=== PATIENT | female | born 1935 | race Caucasian/White ===

== ENCOUNTER → 2017-05-03 14:09 | Outpatient (CLI) | payer MEDICARE, SELFPAY ==
[2017-05-03 14:28] LABS: Bacteria 0 SEEN /hpf (None Seen); Mucous, Urine 0 SEEN /hpf (<or=2+); White Blood Cells 0 SEEN /hpf (0-5)
[2017-05-03 15:27] LABS: Color, Urine Yellow (Yellow); Glucose, Dipstick Normal (Normal); Ketone-Dipstick Negative (Negative); Leukocyte Esterase-Dipstick Negative /ul (Negative); Nitrite-Dipstick Negative (Negative); Occult Blood-Urine 10 /ul (Negative); Protein-Dipstick Negative (Negative); Urine Bilirubin Dipstick Negative (Negative); Urine Clarity Sl. Cloudy (Clear); Urine Urobilinogen Normal (Normal)
[2017-05-03 15:58] LABS: T4 Free Direct 1.09 ng/dL (0.76-1.46)
[2017-05-03 16:30] LABS: Red Blood Cells-Urine 0-5 SEEN /hpf (0-5); Squamous Epithelial Cells - UA 0-5 SEEN /hpf (5-10)
[2017-05-03 16:33] LABS: Erythrocyte Sedimentation Rate 10 mm/hr (0-30)
[2017-05-04 10:45] LABS: T3 Total - Triiodothyronine 0.92 ng/mL (0.6-1.81)
[2017-05-07 16:08] LABS: Albumin 3.8 g/dL (2.9-4.4); Alpha-1-Globulins 0.2 g/dL (0.0-0.4); Alpha-2-Globulins 0.8 g/dL (0.4-1.0); Gamma Globulin 1.2 g/dL (0.4-1.8); Immunoglobulin A 214 mg/dL (64-422); Immunoglobulin G 874 mg/dL (700-1600); Immunoglobulin M 262 mg/dL (26-217)
[2017-05-08 16:15] LABS: Thyroid Peroxidase AB 12 IU/mL (0-34)
== END ==
PROVIDERS: Family Provider Family Medicine; PCP Family Medicine; Visit Provider Dermatology Pediatric Dermatology
DX: L29.9 Pruritus, unspecified (principal); L50.3 Dermatographic urticaria; I83.12 Varicose veins of left lower extremity with inflammation
CPT/HCPCS: 36415; 81001; 82784; 84165; 84439; 84443; 84480; 85652; 86334; 86376

== ENCOUNTER → 2017-05-08 12:30 | Outpatient (CLI) | payer MEDICARE, SELFPAY | PROVIDERS: Family Provider Family Medicine; PCP Family Medicine; Visit Provider Dermatology Pediatric Dermatology | DX: L50.3 Dermatographic urticaria (principal); I83.12 Varicose veins of left lower extremity with inflammation; L29.9 Pruritus, unspecified | CPT/HCPCS: 82274 ==

== ENCOUNTER → 2017-05-14 11:55 | Outpatient (CLI) | payer MEDICARE, SELFPAY ==
--- NOTE | 2017-05-14 11:59 | BI_ITS ---
MAMMOGRAPHY - BILATERAL SCREENING REASON FOR EXAM: Female, 81 years old. Routine annual screening examination. PERTINENT HISTORY: Remote left stereotactic breast biopsy. TECHNIQUE: Digital bilateral breast hilary (3D mammographic acquisition) in the CC and MLO projections. 2-D mediolateral oblique (MLO) and craniocaudad (CC) views of both breasts were obtained. CAD: Full Field Digital Mammography with Computer Added Detection was performed. COMPARISON: Comparison is made with prior outside examination of December 06, 2015. FINDINGS: Breast Composition: There are scattered areas of fibroglandular density. There are no dominant masses or suspicious calcifications. Stable bilateral secretory calcifications. A tissue clip marker is seen in the upper deep lateral portion of the left breast. No other significant abnormalities are identified. There has been no significant change since the prior study. BI/SCREENING MAMM (CAD), BILAT IMPRESSION: Stable bilateral screening mammogram. Yearly follow-up mammogram recommended. (A) ASSESSMENT CATEGORY: BIRADS Category 2: Benign. A letter regarding these results will be sent to the patient by the facility within 30 days. Approximately 10% of breast cancers are not detected by mammography. A normal mammogram should not delay biopsy of a clinically suspicious abnormality. [id number] Electronically Signed: Brian Del Cid MD at 13:50 EDT Tel [phone], Service support ,
== END ==
PROVIDERS: Family Provider Family Medicine; PCP Family Medicine; Visit Provider Dermatology Pediatric Dermatology
DX: Z12.31 Encounter for screening mammogram for malignant neoplasm of breast (principal)
CPT/HCPCS: 77063; 77067

== ENCOUNTER → 2017-07-05 16:43 | Outpatient (CLI) | payer MEDICARE, SELFPAY | PROVIDERS: Family Provider Family Medicine; PCP Family Medicine; Visit Provider Nurse Practitioner Adult Health | DX: R30.0 Dysuria (principal) | CPT/HCPCS: 87086; 87088; 87186 ==

== ENCOUNTER → 2017-08-07 13:19 | Outpatient (CLI) | payer MEDICARE, SELFPAY | PROVIDERS: Family Provider Family Medicine; PCP Family Medicine; Visit Provider Nurse Practitioner Adult Health | DX: R82.99 Other abnormal findings in urine (principal) | CPT/HCPCS: 87086 ==

== ENCOUNTER → 2018-07-04 10:57 | Outpatient (CLI) | payer MEDICARE, SELFPAY ==
[2018-07-04 11:58] LABS: International Normalized Ratio 1.2; Prothrombin Time (Protime)PT. 15.4 SECONDS (11.7-14.9)
== END ==
PROVIDERS: Family Provider Family Medicine; PCP Family Medicine; Visit Provider Physician Assistant
DX: Z79.01 Long term (current) use of anticoagulants (principal)
CPT/HCPCS: 36415; 85610

== ENCOUNTER → 2020-03-05 09:30 | Outpatient (CLI) | payer MEDICARE, SELFPAY ==
--- NOTE | 2020-03-05 09:38 | RAD_ITS ---
CLINICAL HISTORY: Female, 84 years old. 2 month history of abdominal pain worse in the right lower quadrant. Chronic diarrhea. PROCEDURE: Small bowel follow-through examination. FLUOROSCOPY TIME (if supplied): (1 minute.) minutes/seconds TECHNIQUE: (All elements of maximal sterile barrier technique followed, including US elements as applicable) The patient ingested barium. A small bowel follow-through examination was then obtained. A public relations consultant film was obtained. A moderate amount of fecal material is seen in colon. The patient is status post cholecystectomy. There is evidence of a dextroscoliosis with evidence of prior vertebroplasty of the L1 and L2 vertebrae. The patient ingested barium. The small bowel transit is normal. No evidence of intrinsic or extrinsic small bowel disease. The terminal ileum is unremarkable. RAD/Small Bowel Series Only IMPRESSION: Unremarkable small bowel follow-through examination. Electronically Signed: Brian Del Cid MD at 7:46 EST , Service support ,
== END ==
PROVIDERS: PCP Family Medicine; Referring Provider Nurse Practitioner Adult Health; Visit Provider Nurse Practitioner Adult Health
DX: K52.9 Noninfective gastroenteritis and colitis, unspecified (principal)
CPT/HCPCS: 74250

== ENCOUNTER 2021-08-31 17:55 | Inpatient (IN) | payer MEDICARE, SELFPAY ==
[2021-08-31 18:22] VITALS: BMI 21.4
--- NOTE | 2021-08-31 20:03 | HP.PCM_ITS ---
HPI - General General Date of Admission: 08/31/21 Date of Service: 08/31/21 Chief Complaint: Here for rehab. HPI Narrative 08/04/2021 JIGAR IVY, is a 85 Female hurt right hip, fell. X-rays negative at time. Right hip pain persisted. She later presented to [facility], further imaging revealed right femoral neck fracture. 08/29/2021 Admit to [facility] with right femoral neck fracture. 08/29/2021 Orthopedics performed right hip hemiarthroplasty. 08/31/2021 Admit to TCU with debility, here for rehabilitation, strengthening, prior to discharge home. She has at home, but he is not in good health to be able to take care of her. [facility] Medical History (Updated 08/31/21 @ 20:[address] Solitario Light MD) Anxiety Asthma Atrial fibrillation Chest pain Depression Hip fracture, right Hypertension Irritable bowel Non-smoker Osteoporosis Pulmonary hypertension Rotator cuff arthropathy of right shoulder Wears hearing aid in both ears Home Medications albuterol sulfate 90 mcg/actuation aerosol inhaler (ProAir HFA) 2 puff inhalation Q6H PRN PRN sob 08/31/21 [History Last Taken Unknown] alosetron 0.5 mg tablet (Lotronex) 0.5 mg PO DAILY Check with primary doctor 08/31/21 [History Last Taken Unknown] ascorbic acid (vitamin C) 500 mg tablet 500 mg PO DAILY supplement 08/31/21 [History Last Taken Unknown] calcium carbonate-vitamin D3 600 mg-125 unit tablet 600 tab PO DAILY vitamin 08/31/21 [History Last Taken Unknown] cetirizine 10 mg tablet 10 mg PO DAILY allergies 08/31/21 [History Last Taken Unknown] citalopram 20 mg tablet 20 mg PO DAILY mood 08/31/21 [History Last Taken Unknown] colestipol 1 gram tablet 2 g PO DAILY Check with primary doctor 08/31/21 [History Last Taken Unknown] ferrous sulfate 325 mg (65 mg iron) tablet 325 mg PO DAILY iron 08/31/21 [History Last Taken Unknown] fluticasone propionate 45 mcg-salmeterol 21 mcg/actuation HFA inhaler (Advair HFA) 2 puff inhalation BID sob/wheezing 08/31/21 [History Last Taken Unknown] furosemide 40 mg tablet 40 mg PO DINNER water pill 08/31/21 [History Last Taken Unknown] furosemide 80 mg tablet (Lasix) 80 mg PO DAILY water pill 08/31/21 [History Last Taken Unknown] hydrocodone-acetaminophen 5-325mg 5mg-325mg 1 tab PO Q6H PRN Severe Pain (Scale Score 6-10) 08/31/21 [History Last Taken Unknown] hydroxychloroquine 200 mg tablet 200 mg PO BID Check with primary doctor 08/31/21 [History Last Taken Unknown] iron bisgly,ps-FA-B-C#12-succ 1 tab PO/SL DAILY Check with primary doctor 08/31/21 [History Last Taken Unknown] loperamide 2 mg tablet 2 - 4 mg PO Q8H PRN Loose Stool 08/31/21 [History Last Taken Unknown] losartan 50 mg tablet (Cozaar) 50 mg PO DAILY BP 08/31/21 [History Last Taken Unknown] metolazone 2.5 mg tablet 2.5 mg PO DAILY water pill 08/31/21 [History Last Taken Unknown] metoprolol succinate 25 mg tablet,extended release 24 hr 25 mg PO DAILY water pill 08/31/21 [History Last Taken Unknown] nitroglycerin 0.4 mg sublingual tablet 0.4 mg sublingual Q5M PRN Chest Pain 08/31/21 [History Last Taken Unknown] omeprazole 40 mg capsule,delayed release 40 mg PO DAILY acid reflux 08/31/21 [History Last Taken Unknown] potassium chloride 10 mEq tablet,extended release 10 meq PO BID supplement 08/31/21 [History Last Taken Unknown] sacubitril 24 mg-valsartan 26 mg tablet (Entresto) 1 tab PO BID BP 08/31/21 [History Last Taken Unknown] spironolactone 25 mg tablet 12.5 mg PO DAILY BP 08/31/21 [History Last Taken Unknown] sucralfate 1 gram tablet 1 g PO 4X/DAY stomach 08/31/21 [History Last Taken Unknown] vitamin B comp with vit C no.6 1 tab PO/SL DAILY supplement 08/31/21 [History Last Taken Unknown] warfarin 5 mg tablet 5 mg PO DAILY blood thinner 08/31/21 [History Last Taken Unknown] Allergy/AdvReac Type Severity Reaction Status Date / Time lisinopril Allergy Shortness Verified 08/31/21 18:58 of breath azithromycin [From Zithromax] AdvReac Other Verified 08/31/21 18:58 cyclobenzaprine AdvReac Other Verified 08/31/21 18:58 [From Flexeril] fentanyl AdvReac Other Verified 08/31/21 18:58 pregabalin [From Lyrica] AdvReac Other Verified 08/31/21 18:58 Family History (Updated 08/31/21 @ 20:[address] Solitario Light MD) Mother Cancer Hypertension Sister CAD (coronary artery disease) Cervical cancer Family History no significant family his Surgical History (Updated 08/31/21 @ 20:[address] Solitario iLght MD) History of appendectomy History of carpal tunnel release History of cholecystectomy History of hernia repair History of left breast biopsy History of left knee replacement History of lumbar surgery History of partial colectomy History of total abdominal hysterectomy Social History (Updated 08/31/21 @ 20:[address] Solitario Light MD) household members: spouse Smoking Status: Never smoker alcohol intake: never substance use type: does not use ROS Constitutional Constitutional: Denies chills, fever(s) or weight gain ENT HEENT: Denies headache(s), nasal congestion or nasal discharge Cardiovascular Cardiovascular: Denies chest pain or palpitations Respiratory/Chest Respiratory/Chest: Denies cough, excessive phlegm production or shortness of breath with exertion Gastrointestinal Gastrointestinal: Denies abdominal pain, nausea or vomiting Genitourinary Genitourinary: Denies dysuria Musculoskeletal Musculoskeletal: Denies joint pain or joint swelling Integumentary Integumentary: Denies rash or wounds Neurologic Neurologic: Denies focal weakness, numbness or tingling Psychiatric Psychiatric: Denies anxiety, auditory hallucinations, depression, homicidal ideation or suicidal ideation Vital Signs Vital Signs Vital Signs: Weight Weight: 54.998 kg Body Mass Index (BMI) 21.4 Physical Exam Const alert General Appearance: cooperative HEENT normocephalic Eyes PERRL and EOMs intact bilaterally Neck supple, no JVD and no carotid bruits Resp normal respiratory effort, normal air movement and clear to auscultation bilaterally Cardio regular rate and regular rhythm GI normal to inspection, nondistended, normoactive bowel sounds, non-tender and non-distended Extremity normal capillary refill General Extremity: Negative for edema Skin no rashes or lesions noted General Skin Exam: no breakdown Psych affect normal Appearance: appropriate Assessment & Plan Assessment/Plan (1) Debility: (2) Closed right hip fracture: (3) Atrial fibrillation: (4) Hypertension: (5) Irritable bowel syndrome: (6) Sciatica: (7) Depression: (8) Edema: (9) Asthma: (10) Osteoarthritis: (11) Allergic rhinitis: (12) Coronary artery disease: (13) Gastroesophageal reflux disease: (14) Hypokalemia: (15) Chronic systolic congestive heart failure: PLAN: Plan 85 year old female with below past medical history hospitalized for right hip fracture, underwent right hip hemiarthroplasty 08/29/2021, admitted to TCU with debility, here for rehabilitation, strengthening, prior to discharge home with . * Debility - PT/OT. * Pain - Tylenol 1000mg q6h prn pain (1-3), Tramadol 50mg q6h prn pain (4-5), Oxycodone 5mg q4h prn pain (6-10). * Bowel - Hold laxatives, resident has IBS. * Adult immunization - Administer pneumonia vaccine, covid19 vaccine, flu vaccine. * DVT prophylaxis - Not necessary, already on wafarin. * Asthma - Budesonide 0.5mg q12h, Albuterol 2.5mg q6h wa, albuterol 2 puffs q6h prn. * Vitamin C deficiency - Vitamin C 500mg daily. * Calcium deficiency - Calcium 1 tablet dialy. * Depression - Citalopram 20mg daily, stable chronic learning operations specialist use, GDR not recommended. * IBS - Colestipol 2gm daily, Loperamide 2-4mg q8h prn. * Iron deficiency anemia - Ferrous sulfate 325mg daily. * Chronic systolic congestive heart failure - Metoprolol succinate 25mg daily, Entresto 24/26mg bid, Aldactone 12.5mg daily, Lasix 80mg, 40mg, Metolazine 2 .5mg daily. * Osteoarthritis - Plaquenil 200mg bid. * Nutrition - MVI daily. * Coronary artery disease - Metoprolol succinate 25mg daily, NTG 0.4mg sl q5m prn. * GERD - Pantoprazole 40mg daily, Sucralfate 1gm 4x/day. * Hypokalemia - KCL 10meq bid. * Leg cramp - Vitamin B complex daily. * Atrial fibrillation - Metoprolol succinate 25mg daily, warfarin 5mg daily, follow inr.
--- NOTE | 2021-08-31 20:35 | NURSING ---
notified of need for Lasix clarification due to duplicate orders listed on discharge med list, no new orders at this time
[2021-08-31 22:22] VITALS: PULSE 101; RESP 16; O2SAT 97
[2021-09-01] VITALS (7 sets, daily range): BP systolic 91–111; BP diastolic 48–57; PULSE 71–101; RESP 16; TEMP 36.1–37.2; O2SAT 96–99
[2021-09-01] MEDS: Acetaminophen 500 MG Tablet 1000 MG PO (01:29)
[2021-09-01] MEDS: oxyCODONE 5 MG Tablet PO ×3 (01:30→20:51)
[2021-09-01 05:49] LABS: Absolute Lymphocyte Count 0.91 X10^3/uL (0.83-4.51); Absolute Neutrophil Count 7.7 X10^3/uL (2.0-7.7); Basophil# 0.01 X10^3/uL; Basophil% 0.1 % (0-1); Hematocrit 24.7 % (37-47); Hemoglobin 8.3 g/dL (12.0-15.0); Lymphocyte # 0.91 X10^3/ul (0.83-4.51); Lymphocyte % 9.4 % (19-41); Mean Corp Hgb Conc 33.6 g/dL (32-36); Mean Corpuscular Hgb 33.1 pg (27.0-32.0); Mean Corpuscular Volume 98.4 fL (81-99); Monocyte# 0.91 X10^3/uL; Monocyte% 9.4 % (0-10); NRBC Flagged by Analyzer 0 % (0-5); Neutrophil # 7.71 X10^3/uL (2.7-7.7); Neutrophil % 79.7 % (47-70); Platelet Count 130 K/mm3 (150-450); RBC Distribution Width CV 14.2 % (11.6-14.6); RBC Distribution Width SD 51.8 fl (35.1-43.9); Red Blood Count 2.51 M/mm3 (4.2-5.4); White Blood Count 9.7 K/mm3 (4.4-11.0)
[2021-09-01] MEDS: Loratadine 10 MG Tablet PO (06:07)
[2021-09-01] MEDS: Pantoprazole Sodium 40 MG Tablet PO (06:07)
[2021-09-01] MEDS: Sucralfate 1 GM Tablet PO ×4 (06:07→20:57)
[2021-09-01] MEDS: Citalopram 20 MG Tablet PO (06:07)
[2021-09-01] MEDS: Vitamin B Comp W-C Capsule 1 CAP PO (06:07)
[2021-09-01] MEDS: Ascorbic Acid 500 MG Tablet PO (06:07)
[2021-09-01 06:09] LABS: International Normalized Ratio 1.9; Prothrombin Time (Protime)PT. 21.9 SECONDS (11.7-14.9)
[2021-09-01 06:20] LABS: Anion Gap 5 (5-15); BUN 14 mg/dL (7-18); BUN/Creat Ratio 23.5 RATIO (10-20); Calcium,Total 8.6 mg/dL (8.5-10.1); Chloride 107 mmol/L (98-107); EST Glomerular Filtration Rate 102 mL/min (>60); Est Glom Filt Rate - Afr Amer 124 mL/min (>60); Estimated Creatinine Clearance 35.26 ml/min; Glucose 98 mg/dL (74-106); Potassium 3.4 mmol/L (3.5-5.1); Sodium Level 137 mmol/L (136-145)
[2021-09-01] MEDS: Ferrous Sulfate 325 MG Tablet PO (08:57)
[2021-09-01] MEDS: Calcium Carb/Vitamin D 1 TABLET Tablet PO (08:57)
[2021-09-01] MEDS: Multivitamins,Therapeutic Tablet 1 TABLET PO (08:57)
[2021-09-01] MEDS: Hydroxychloroquine 200 MG Tablet PO ×2 (08:58→16:46)
[2021-09-01] MEDS: Potassium Chloride Oral Tablet 10 MEQ PO ×2 (08:59→16:45)
[2021-09-01] MEDS: Tuberculin,Purif.prot.deriv. 50 TU/ML Vial 0.1 ML ID (10:06)
--- NOTE | 2021-09-01 10:54 | PCM.PN.DRR ---
TCU RX Drug Regimen Review Subjective: [85yof admitted to TCU for rehab. Transfer from outside facility where admitted for R hip fracture s/p R hip hemiarthroplasty] Objective: Allergies lisinopril Allergy (Verified 08/31/21 18:58) Shortness of breath azithromycin [From Zithromax] Adverse Reaction (Verified 08/31/21 18:58) Other cyclobenzaprine [From Flexeril] Adverse Reaction (Verified 08/31/21 18:58) Other fentanyl Adverse Reaction (Verified 08/31/21 18:58) Other pregabalin [From Lyrica] Adverse Reaction (Verified 08/31/21 18:58) Other Current Medications Generic Name Dose Route Start Last Admin Trade Name Freq PRN Reason Stop Dose Admin Acetaminophen 1,000 mg 08/31/21 20:59 09/01/21 01:29 Acetaminophen 500 Mg Tablet PO 1,000 mg Q6H PRN PRN Administration Pain Score 1-3 Albuterol Sulfate 2 puff 08/31/21 20:23 Albuterol Ih 8.5 Gm (Proair) Inhaler (200 Puffs) INHALATION Q6H PRN PRN sob Calcium/Vitamin D 1 tablet 09/01/21 08:00 09/01/21 08:57 Calcium Carb/Vitamin D 1 Tablet Tablet PO 1 tablet DAILYCM NEVILLE Administration Citalopram Hydrobromide 20 mg 09/01/21 06:00 09/01/21 06:07 Citalopram 20 Mg Tablet PO 20 mg DAILY NEVILLE Administration Colestipol HCl 2 gm 09/01/21 11:00 Colestipol 1 Gm Tablet PO 1100 NEVILLE Ferrous Sulfate 325 mg 09/01/21 08:00 09/01/21 08:57 Ferrous Sulfate 325 Mg Tablet PO 325 mg DAILYCM NEVILLE Administration Hydroxychloroquine Sulfate 200 mg 09/01/21 08:00 09/01/21 08:58 Hydroxychloroquine 200 Mg Tablet PO 200 mg 0800,1600 NEVILLE Administration Loperamide HCl 2 - 4 mg 08/31/21 20:39 Loperamide 2 Mg Capsule PO Q8H PRN Loose Stool Loratadine 10 mg 09/01/21 06:00 09/01/21 06:07 Loratadine 10 Mg Tablet PO 10 mg DAILY NEVILLE Administration Metoprolol Succinate 25 mg 09/01/21 06:00 09/01/21 08:56 Metoprolol(Xl)Succ 25 Mg Tablet PO Not Given DAILY [facility] Multivitamins 1 capsule 09/01/21 06:00 09/01/21 06:07 Vitamin B Comp W-C Capsule PO 1 capsule DAILY [facility] Administration Multivitamins 1 tablet 09/01/21 08:00 09/01/21 08:57 Multivitamins,Therapeutic Tablet PO 1 tablet DAILYCM [facility] Administration Nitroglycerin 0.4 mg 08/31/21 20:23 Nitroglycerin Sl (Ed/Img/Cath) 0.4 Mg Tablet SL Q5M PRN Chest Pain Nutritional Formula (Lactose Free) 120 ml 09/01/21 12:00 Ensure Enlive 120 Ml Liquid PO 4X/DAY [facility] Oxycodone HCl 5 mg 08/31/21 20:59 09/01/21 10:05 Oxycodone 5 Mg Tablet PO 5 mg Q4H PRN PRN Administration Pain Score 6-10 Pantoprazole Sodium 40 mg 09/01/21 06:00 09/01/21 06:07 Pantoprazole Sodium 40 Mg Tablet PO 40 mg DAILY [facility] Administration Potassium Chloride 10 meq 09/01/21 08:00 09/01/21 08:59 Potassium Chloride Oral Tablet 10 Meq PO 10 meq 0800,1600 [facility] Administration Fluticasone/Salmeterol 1 puff 09/01/21 18:00 Fluticasone/Salmeterol 232-14 Inhaler INHALATION Q12 [facility] Sucralfate 1 gm 08/31/21 22:00 09/01/21 06:07 Sucralfate 1 Gm Tablet PO 1 gm 4X/DAY [facility] Administration Tramadol HCl 50 mg 08/31/21 20:59 Tramadol 50 Mg Tablet PO Q6H PRN PRN Pain Score 4-5 Tuberculin PPD 0.1 ml 09/08/21 10:00 Tuberculin,Purif.Prot.Deriv. 50 Tu/Ml Vial ID 09/08/21 10:01 X1 ONE Warfarin Sodium 5 mg 09/01/21 17:00 Warfarin 5 Mg Tablet PO DAILY@1700 [facility] Problem List (Last Reviewed 08/31/21 @ 20:[address] Solitario Light MD) Chronic systolic congestive heart failure (Chronic) Hypokalemia (Acute) Gastroesophageal reflux disease (Acute) Coronary artery disease (Acute) Allergic rhinitis (Acute) Osteoarthritis (Acute) Asthma (Acute) Edema (Acute) Depression (Acute) Sciatica (Acute) Irritable bowel syndrome (Acute) Hypertension (Chronic) Atrial fibrillation (Acute) Closed right hip fracture (Acute) Debility (Acute) Vital Signs Temp Pulse Resp BP Pulse Ox O2 Del Method 98.0 F 89 16 92/50 L 96 Room Air 09/01/21 06:09 09/01/21 08:56 09/01/21 07:16 09/01/21 08:56 09/01/21 07:16 09/01/21 07:16 Oxygen Delivery Method Room Air Weight: 54.998 kg Body Mass Index (BMI) 21.4 Sodium 137 mmol/L (136-145) 09/01/21 05:08 Potassium 3.4 mmol/L (3.5-5.1) L 09/01/21 05:08 Chloride 107 mmol/L (98-107) 09/01/21 05:08 Carbon Dioxide 25.0 mmol/L (21.0-32.0) 09/01/21 05:08 Anion Gap 5 (5-15) 09/01/21 05:08 BUN 14 mg/dL (7-18) 09/01/21 05:08 Creatinine 0.60 mg/dL (0.55-1.02) 09/01/21 05:08 Est GFR (MDRD) Af Amer 124 mL/min (>60) 09/01/21 05:08 Est GFR (MDRD) Non-Af 102 mL/min (>60) 09/01/21 05:08 BUN/Creatinine Ratio 23.5 RATIO (10-20) H 09/01/21 05:08 Glucose 98 mg/dL (74-106) 09/01/21 05:08 Assessment/Plan: 1. Pain/s/p R hip hemiarthroplasty - on acetaminophen 1gm po q6h prn pain score 1-3, tramadol 50mg po q4h prn pain score 4-5, oxycodone 5mg po q4h prn pain score 6-10. Has received APAP x1 and oxycodone x2 doses since admission - patient with pain scores 8/10 prior to meds and documented as resting comfortably for post-med assessment. Scr 0.60 with CrClest ~60ml/min (tramadol dose okay). Continue to monitor pain scores, function, Scr, constipation, mental status/sedation. 2. Atrial fibrillation - on metoprolol xl 25mg po daily and warfarin (current dose 5mg po daily). HR 71-101, BP 91/48-111/56. INR 1.9 on 09/01/21. Hgb 8.3 on 09/01 (no comparison in EMR). Continue to monitor HR, for symptoms of dizziness, palpitations, INR at least twice weekly (or more often if indicated due to drug interactions, change in clinical status), symptoms of bleeding, Hgb. Note that sucralfate can impair the absorption of warfarin, however, patient has been on both medications and dose of warfarin should have been titrated to the presence of sucralfate. 3. History of systolic heart failure/CAD- on metoprol xl 25mg po daily and nitroglycerin prn chest pain (has not required any doses since admission). Note that patient was on sacubitril/valsaratan, furosemide, metolazone, spironolactone - all were stopped on 09/01/21 due to blood pressures. Continue to monitor BP, for symptoms of SOB/edema/volume overload. 4. History of asthma/allergic rhinitis - on fluticasone/salmeterol 232/14 mcg 1 inhalation q12 and albuterol MDI 2 puffs q6h prn SOB (has not used any doses since admit). Also on loratadine 10mg po daily. Monitor for SOB/wheezing, prn usage of albuterol MDI, sedation or dry mouth with loratadine. 5. History of IBS - on colestipol 2gm po daily and loperamide 2-4mg po q8h prn loose stools (no usage since admission). Per nursing documentation, pt had normal BM on 08/31/21. Continue to monitor bowel pattern, for bloating, po intake. 6. GERD - on pantoprazole 40mg po daily and sucralfate 1gm po four times daily. Continue to monitor for symptoms of reflux/GERD, diarrhea or constipation. Note that sucralfate can interfere with absorption of medications - change in sucralfate administration could impact other medications. 7. Hypokalemia - on potassium chloride 10 mEq po bid. K 3.4 on 08/12/21, Scr 0.6. Continue to monitor serum potassium periodically, renal function, GI upset. Note that patient's diuretics were stopped - may not require potassium supplementation long-term if these medications are not restarted. 8. History of anemia - on ferrous sulfate 325mg po daily. Hgb 8.3 on 09/01 with normal MCV (no comparison in EMR). No iron studies in records. Consider iron studies if clinically indicated. Monitor for GI upset, constipation, Hgb. 9. History of osteoporosis - on calcium carbonate with Vit D daily. Ca 8.6 on 09/01/21. Monitor for constipation. 10. Wellness/nutrition - on MVI daily, B complex vitamin daily, Ensure Enlive four times daily. Monitor po intake, weight, albumin/prealbumin as clinically indicated. Assessment/Plan for indications treated with psychotropic medications: 11. Depression - on citalopram 20mg po daily - per attending physician, GDR not recommended due to long-term chronic/stable use. Monitor mood, mental status, symptoms of serotonin syndrome. Medical chart and medication regimen reviewed. The following medication irregularities or issues were identified: - Note that sucralfate can impair the absorption of warfarin, however, patient has been on both medications and dose of warfarin should have been titrated to the presence of sucralfate. Change in sucralfate administration may require closer INR monitoring - Indication for hydroxychloroquine unclear - per external fill history records, last filled in 09/2020 for 90 day supply. Please consider if patient has indication for this medication Date of Note:: 09/01/21
[2021-09-01] MEDS: Colestipol 1 GM TABLET 2 GM PO (11:03)
[2021-09-01] MEDS: Fluticasone/Salmeterol 232-14 Inhaler 1 PUFF INHALATION (17:25)
[2021-09-01] MEDS: Loperamide 2 MG Capsule PO (20:57)
[2021-09-02] MEDS: Acetaminophen 500 MG Tablet 1000 MG PO (01:21)
[2021-09-02] MEDS: Vitamin B Comp W-C Capsule 1 CAP PO (06:58)
[2021-09-02] MEDS: Sucralfate 1 GM Tablet PO ×4 (06:59→20:09)
[2021-09-02] MEDS: Loratadine 10 MG Tablet PO (06:59)
[2021-09-02] MEDS: Citalopram 20 MG Tablet PO (06:59)
[2021-09-02] MEDS: Fluticasone/Salmeterol 232-14 Inhaler 1 PUFF INHALATION ×2 (06:59→17:44)
[2021-09-02] MEDS: Pantoprazole Sodium 40 MG Tablet PO (06:59)
[2021-09-02 07:00] VITALS: BP 100/60; PULSE 77
--- NOTE | 2021-09-02 08:49 | CASEMGMT ---
Social Work SW met with pt and introduced self and role of SW. Psychosocial assessment completed. SW reviewed code status and MOLST with pt and assisted pt in completing MOLST. Pt wishes are full code with no intubation. MOLST form communicated to physician and placed on pt chart. Nursing updated. Pt notified of MMO MCR benefit and that next review date is 09/06 and continued stay is not guaranteed. Pt lives at home with her and states is having some health issues and her daughters are currently caring for him. Pt will need to return to prior level of independence to return home. SW to continue to follow for d/c planning and support. MATT Tapia
[2021-09-02] MEDS: Multivitamins,Therapeutic Tablet 1 TABLET PO (08:51)
[2021-09-02] MEDS: Ferrous Sulfate 325 MG Tablet PO (08:51)
[2021-09-02] MEDS: Potassium Chloride Oral Tablet 10 MEQ PO ×2 (08:51→16:10)
[2021-09-02] MEDS: Calcium Carb/Vitamin D 1 TABLET Tablet PO (08:51)
[2021-09-02] MEDS: oxyCODONE 5 MG Tablet PO ×3 (08:58→19:42)
[2021-09-02] MEDS: Colestipol 1 GM TABLET 2 GM PO (11:03)
[2021-09-02 11:10] VITALS: PULSE 79; RESP 18; O2SAT 94
[2021-09-02 15:35] VITALS: BP 108/65; PULSE 80; RESP 20; TEMP 36.8; O2SAT 98
--- NOTE | 2021-09-02 17:12 | NURSING ---
PT AND FAMILY UPDATED ON POSITIVE STAFF MEMBER WITH COVID
[2021-09-02] MEDS: Menthol/Lanolin/Calamine/Znox 113 GM Tube 1 APPLIC TOPICAL (17:44)
[2021-09-02] MEDS: traMADol 50 MG Tablet PO (20:20)
[2021-09-03 05:03] VITALS: BP 105/54; PULSE 92
[2021-09-03] MEDS: Sucralfate 1 GM Tablet PO ×4 (05:03→21:03)
[2021-09-03] MEDS: Citalopram 20 MG Tablet PO (05:03)
[2021-09-03] MEDS: Vitamin B Comp W-C Capsule 1 CAP PO (05:03)
[2021-09-03] MEDS: Pantoprazole Sodium 40 MG Tablet PO (05:03)
[2021-09-03] MEDS: Metoprolol(XL)Succ 25 MG Tablet PO (05:03)
[2021-09-03] MEDS: Loratadine 10 MG Tablet PO (05:03)
[2021-09-03] MEDS: Fluticasone/Salmeterol 232-14 Inhaler 1 PUFF INHALATION ×2 (05:04→17:09)
[2021-09-03] MEDS: Menthol/Lanolin/Calamine/Znox 113 GM Tube 1 APPLIC TOPICAL ×2 (05:12→17:10)
[2021-09-03] MEDS: oxyCODONE 5 MG Tablet PO ×2 (08:01→18:48)
[2021-09-03] MEDS: Ferrous Sulfate 325 MG Tablet PO (08:02)
[2021-09-03] MEDS: Potassium Chloride Oral Tablet 10 MEQ PO ×2 (08:02→17:09)
[2021-09-03] MEDS: Calcium Carb/Vitamin D 1 TABLET Tablet PO (08:02)
[2021-09-03] MEDS: Multivitamins,Therapeutic Tablet 1 TABLET PO (08:02)
[2021-09-03] MEDS: traMADol 50 MG Tablet PO ×2 (09:25→21:10)
[2021-09-03] MEDS: Colestipol 1 GM TABLET 2 GM PO (12:41)
[2021-09-03 14:38] VITALS: BP 88/51; PULSE 72; RESP 16; TEMP 36.3; O2SAT 95
[2021-09-03 17:12] VITALS: BP 94/59; PULSE 77
[2021-09-03] MEDS: Acetaminophen 500 MG Tablet 1000 MG PO (21:09)
[2021-09-03 21:15] VITALS: O2SAT 98
[2021-09-04 00:40] VITALS: O2SAT 94
[2021-09-04] MEDS: Citalopram 20 MG Tablet PO (05:08)
[2021-09-04] MEDS: Pantoprazole Sodium 40 MG Tablet PO (05:08)
[2021-09-04] MEDS: Loratadine 10 MG Tablet PO (05:08)
[2021-09-04] MEDS: Vitamin B Comp W-C Capsule 1 CAP PO (05:09)
[2021-09-04] MEDS: Sucralfate 1 GM Tablet PO ×4 (05:10→20:14)
[2021-09-04] MEDS: Fluticasone/Salmeterol 232-14 Inhaler 1 PUFF INHALATION ×2 (05:11→16:58)
[2021-09-04 05:14] VITALS: BP 99/47; PULSE 78
[2021-09-04] MEDS: Menthol/Lanolin/Calamine/Znox 113 GM Tube 1 APPLIC TOPICAL ×2 (05:14→17:02)
[2021-09-04 05:20] VITALS: O2SAT 95
[2021-09-04] MEDS: Potassium Chloride Oral Tablet 10 MEQ PO ×2 (07:51→16:59)
[2021-09-04] MEDS: Multivitamins,Therapeutic Tablet 1 TABLET PO (07:51)
[2021-09-04] MEDS: Calcium Carb/Vitamin D 1 TABLET Tablet PO (07:51)
[2021-09-04] MEDS: Ferrous Sulfate 325 MG Tablet PO (07:51)
[2021-09-04] MEDS: oxyCODONE 5 MG Tablet PO ×2 (10:51→20:12)
[2021-09-04] MEDS: Colestipol 1 GM TABLET 2 GM PO (12:07)
[2021-09-04] MEDS: traMADol 50 MG Tablet PO ×2 (12:15→21:49)
[2021-09-04 13:53] VITALS: BP 109/52; PULSE 80; RESP 18; TEMP 36.7; O2SAT 92
[2021-09-04] MEDS: Acetaminophen 500 MG Tablet 1000 MG PO (20:12)
[2021-09-04 21:50] VITALS: O2SAT 95
[2021-09-05] MEDS: oxyCODONE 5 MG Tablet PO ×3 (00:35→20:38)
--- NOTE | 2021-09-05 00:45 | NURSING ---
Pt calls questioning if she had pain medication. Informed her she has taken Oxycodone, Tylenol, and Tramadol. Reports pain at 8/10 to rt hip, groin, and back. Has been thinking about what is going on at her home but verbalizes someone is taking care of things while she is in the hospital. Notes burping and having an upset stomach. Questions if she is on Omeprazole. Informed pt she is taking Protonix which has similar effects. Given yunier galindo. Will continue to monitor.
[2021-09-05 06:04] VITALS: BP 95/51; PULSE 83
[2021-09-05] MEDS: Fluticasone/Salmeterol 232-14 Inhaler 1 PUFF INHALATION ×2 (06:04→17:44)
[2021-09-05] MEDS: Pantoprazole Sodium 40 MG Tablet PO (06:04)
[2021-09-05] MEDS: Sucralfate 1 GM Tablet PO ×4 (06:04→20:40)
[2021-09-05] MEDS: Vitamin B Comp W-C Capsule 1 CAP PO (06:05)
[2021-09-05] MEDS: Citalopram 20 MG Tablet PO (06:05)
[2021-09-05] MEDS: Loratadine 10 MG Tablet PO (06:05)
[2021-09-05] MEDS: Calcium Carb/Vitamin D 1 TABLET Tablet PO (08:19)
[2021-09-05] MEDS: Ferrous Sulfate 325 MG Tablet PO (08:19)
[2021-09-05] MEDS: Multivitamins,Therapeutic Tablet 1 TABLET PO (08:19)
[2021-09-05] MEDS: Potassium Chloride Oral Tablet 10 MEQ PO ×2 (08:19→16:21)
[2021-09-05] MEDS: Menthol/Lanolin/Calamine/Znox 113 GM Tube 1 APPLIC TOPICAL ×2 (08:21→20:51)
--- NOTE | 2021-09-05 10:55 | NURSING ---
PT LEGS AND RIGHT HIP SWOLLEN PITTING X2. PT DAUGHTER STATED THAT PT IS ON LASIX 8O IN MORNING AND 40 AT HS. PT STATED IT IS HARD FOR HER TO BREATH TODAY. LUNGS CLEAR VITALS DONE. DAUGHTER VERY CONCERNED AND STATED WHY IS SHE NOT ON IT NOW. RN AWARE AND NOTE LEFT FOR .
[2021-09-05 10:58] VITALS: BP 107/58; PULSE 83; RESP 18; O2SAT 95
--- NOTE | 2021-09-05 18:55 | NURSING ---
OK PER ,PT DAUGHTER REQUESTED THAT VITALS AND LAB WORK BE FAXED TO . RN AWARE
[2021-09-05] MEDS: Acetaminophen 500 MG Tablet 1000 MG PO (20:38)
[2021-09-05 20:40] VITALS: O2SAT 98
[2021-09-05] MEDS: Furosemide 40 MG Tablet PO (20:49)
[2021-09-06] MEDS: Furosemide 80 MG Tablet PO (05:27)
[2021-09-06] MEDS: Fluticasone/Salmeterol 232-14 Inhaler 1 PUFF INHALATION ×2 (05:27→18:03)
[2021-09-06] MEDS: Citalopram 20 MG Tablet PO (05:28)
[2021-09-06] MEDS: Pantoprazole Sodium 40 MG Tablet PO (05:28)
[2021-09-06 05:29] VITALS: BP 114/64; PULSE 82
[2021-09-06] MEDS: Sucralfate 1 GM Tablet PO ×4 (05:29→20:20)
[2021-09-06] MEDS: Loratadine 10 MG Tablet PO (05:29)
[2021-09-06] MEDS: Metoprolol(XL)Succ 25 MG Tablet PO (05:29)
[2021-09-06] MEDS: Vitamin B Comp W-C Capsule 1 CAP PO (05:29)
[2021-09-06] MEDS: Loperamide 2 MG Capsule PO ×2 (05:51→20:20)
[2021-09-06] MEDS: Potassium Chloride Oral Tablet 10 MEQ PO ×2 (08:16→16:31)
[2021-09-06] MEDS: Ferrous Sulfate 325 MG Tablet PO (08:16)
[2021-09-06] MEDS: Calcium Carb/Vitamin D 1 TABLET Tablet PO (08:16)
[2021-09-06] MEDS: Multivitamins,Therapeutic Tablet 1 TABLET PO (08:16)
[2021-09-06] MEDS: Acetaminophen 500 MG Tablet 1000 MG PO (08:20)
[2021-09-06] MEDS: traMADol 50 MG Tablet PO (08:20)
[2021-09-06 09:30] VITALS: PULSE 83; RESP 18; O2SAT 98
[2021-09-06] MEDS: Menthol/Lanolin/Calamine/Znox 113 GM Tube 1 APPLIC TOPICAL ×2 (09:32→20:21)
--- NOTE | 2021-09-06 09:36 | CASEMGMT ---
Social Work Brief interview for mental status (BIMS) and resident mood interview (PHQ-9) completed on this day. Soumya SCOTT, ANGIES
[2021-09-06 13:54] VITALS: BP 96/54; PULSE 74; RESP 16; TEMP 36.2; O2SAT 98
--- NOTE | 2021-09-06 15:47 | CASEMGMT ---
Social Work Continued stay approved by insurance with next update due on 09/14/2021 with anticipating that at this updated continued stay will be denied. This health and social care teacher to patient room. Patient daughter present in room. This health and social care teacher updated patient and patient daughter on above information. Plan is for patient to return to home with spouse and family to assist at time of discharge. Social Work to continue to follow. Soumya SCOTT, KATIE
--- NOTE | 2021-09-06 16:39 | NURSING ---
rn shift mgr reported that pt rt hip/thigh very edematous, tight, warm to touch. crying in pain into groin area. dr Caraballo assessed, no new orders does not feel pt need doppler at this time.
[2021-09-06] MEDS: Furosemide 40 MG Tablet PO (18:04)
[2021-09-06] MEDS: oxyCODONE 5 MG Tablet PO (20:20)
[2021-09-07 06:01] VITALS: PULSE 79
[2021-09-07] MEDS: Furosemide 80 MG Tablet PO (06:01)
[2021-09-07] MEDS: Citalopram 20 MG Tablet PO (06:01)
[2021-09-07] MEDS: Metoprolol(XL)Succ 25 MG Tablet PO (06:01)
[2021-09-07] MEDS: Loratadine 10 MG Tablet PO (06:01)
[2021-09-07] MEDS: Sucralfate 1 GM Tablet PO ×4 (06:01→21:45)
[2021-09-07] MEDS: Fluticasone/Salmeterol 232-14 Inhaler 1 PUFF INHALATION ×2 (06:01→17:08)
[2021-09-07] MEDS: Vitamin B Comp W-C Capsule 1 CAP PO (06:01)
[2021-09-07] MEDS: Pantoprazole Sodium 40 MG Tablet PO (06:01)
[2021-09-07 06:05] VITALS: BP 99/51; PULSE 79; RESP 20; TEMP 37.2; O2SAT 94
[2021-09-07 06:08] LABS: Anion Gap 4 (5-15); BUN 22 mg/dL (7-18); BUN/Creat Ratio 29.6 RATIO (10-20); Calcium,Total 8.3 mg/dL (8.5-10.1); Chloride 105 mmol/L (98-107); Creatinine, Serum 0.74 mg/dL (0.55-1.02); EST Glomerular Filtration Rate 79 mL/min (>60); Est Glom Filt Rate - Afr Amer 96 mL/min (>60); Estimated Creatinine Clearance 35.26 ml/min; Glucose 98 mg/dL (74-106); Potassium 3.7 mmol/L (3.5-5.1); Sodium Level 139 mmol/L (136-145)
[2021-09-07] MEDS: Ferrous Sulfate 325 MG Tablet PO (08:29)
[2021-09-07] MEDS: Potassium Chloride Oral Tablet 10 MEQ PO ×2 (08:29→17:08)
[2021-09-07] MEDS: Multivitamins,Therapeutic Tablet 1 TABLET PO (08:29)
[2021-09-07] MEDS: Calcium Carb/Vitamin D 1 TABLET Tablet PO (08:29)
--- NOTE | 2021-09-07 10:06 | CASEMGMT ---
Social Work Plan of care meeting held. Patient present as well as patient daughter, Deya. Patient progressing in therapy and being seen by physical and occupational therapy. This 7th grade social studies teacher communicating that next insurance update is due on 09/14/2021 with anticipation that continued stay will be denied. Patient and Pat voiced understanding and aware that insurance will provide a three days notice if continued stay is denied. Patient plans to discharge to home with spouse and family to assist. Team is currently recommending for patient to continue with further care and treatment on the Transitional Care Unit. Social Work to continue to follow. Soumya Mckeon MSW, KATIE
[2021-09-07] MEDS: Menthol/Lanolin/Calamine/Znox 113 GM Tube 1 APPLIC TOPICAL ×2 (11:16→20:47)
[2021-09-07] MEDS: oxyCODONE 5 MG Tablet PO ×2 (13:22→20:47)
[2021-09-07 13:36] VITALS: BP 105/53; PULSE 75; RESP 18; TEMP 37; O2SAT 99
[2021-09-07 14:04] LABS: Hematocrit 28.3 % (37-47); Hemoglobin 9.2 g/dL (12.0-15.0)
[2021-09-07 14:12] LABS: International Normalized Ratio 2.9; Prothrombin Time (Protime)PT. 30.3 SECONDS (11.7-14.9)
--- NOTE | 2021-09-07 15:22 | PCM.PN.BLA ---
Progress Note Afebrile VSS Maintaining appropriate oxygen saturation on RA Discussed with nursing - no problems that need addressed. They are concerned about her INR. The last INR was 3.0 on 09/05/2021 and has not been rechecked. Medication list reviewed. Aliza tells me that she has been urinating a lot. The edema in her legs has decreased significantly. She now has Gregg wrap's in place for compression on both lower extremities. She denies epistaxis, bleeding from her rectum, blood in her urine or bleeding from her gums. Physical Exam Const alert, oriented x3 and no apparent distress Constitutional Narrative: Sitting in the recliner at the bedside with her legs elevated. General Appearance: cooperative Resp Resp Narrative: Clear to auscultation. No tachypnea, no conversational dyspnea. Cardio Cardio Narrative: No gallop. Extremity Extremity Narrative: Posterior thighs are now soft to palpation with very little pitting edema. She denies calf pain. Skin Skin Narrative: No large areas of bruising. Assessment & Plan Assessment/Plan (1) Atrial fibrillation: (2) Closed right hip fracture: (3) Warfarin anticoagulation: (4) Anemia: PLAN: Plan 1. PT/INR and HH ordered. will adjust Warfarin as needed. Visit Charges Inpatient E&M: 48221 SNF Subs L1
--- NOTE | 2021-09-07 15:32 | NURSING ---
Pt reports that Dr. Kaplan's office stated that pt is to go to appointment by cot transfer if she is unable to get on and off the XRAY table unassisted. Dr. Kaplan's office was called to inquire about have XRAYs done at [facility] and sending report to their office instead. No answer but message was left for office.
[2021-09-07] MEDS: Furosemide 40 MG Tablet PO (17:08)
[2021-09-07 20:41] VITALS: BP 99/47; PULSE 68
[2021-09-07 20:44] VITALS: BP 101/60; PULSE 80
[2021-09-07 22:00] VITALS: O2SAT 95
[2021-09-08 05:13] VITALS: BP 99/54; PULSE 76
[2021-09-08] MEDS: Fluticasone/Salmeterol 232-14 Inhaler 1 PUFF INHALATION ×2 (05:21→16:51)
[2021-09-08] MEDS: Pantoprazole Sodium 40 MG Tablet PO (05:21)
[2021-09-08] MEDS: Loratadine 10 MG Tablet PO (05:21)
[2021-09-08] MEDS: Vitamin B Comp W-C Capsule 1 CAP PO (05:21)
[2021-09-08] MEDS: Citalopram 20 MG Tablet PO (05:21)
[2021-09-08 06:20] LABS: International Normalized Ratio 2.9
[2021-09-08 06:25] LABS: Anion Gap 4 (5-15); BUN 20 mg/dL (7-18); BUN/Creat Ratio 29.3 RATIO (10-20); Calcium,Total 8.3 mg/dL (8.5-10.1); Chloride 105 mmol/L (98-107); Creatinine, Serum 0.68 mg/dL (0.55-1.02); EST Glomerular Filtration Rate 87 mL/min (>60); Est Glom Filt Rate - Afr Amer 106 mL/min (>60); Estimated Creatinine Clearance 35.26 ml/min; Glucose 97 mg/dL (74-106); Potassium 3.4 mmol/L (3.5-5.1); Sodium Level 140 mmol/L (136-145)
[2021-09-08 06:27] VITALS: BP 108/55; PULSE 87
[2021-09-08] MEDS: Furosemide 80 MG Tablet PO (06:28)
[2021-09-08] MEDS: Sucralfate 1 GM Tablet PO ×4 (06:28→22:46)
[2021-09-08 06:36] LABS: Absolute Neutrophil Count 3.3 X10^3/uL (2.0-7.7); Basophil# 0.02 X10^3/uL; Basophil% 0.4 % (0-1); Eosinophil# 0.17 X10^3/uL; Eosinophils% 3.4 % (0-5); Hematocrit 24.6 % (37-47); Lymphocyte % 17.9 % (19-41); Mean Corp Hgb Conc 32.5 g/dL (32-36); Mean Corpuscular Hgb 32.4 pg (27.0-32.0); Mean Corpuscular Volume 99.6 fL (81-99); Monocyte# 0.62 X10^3/uL; Monocyte% 12.4 % (0-10); NRBC Flagged by Analyzer 0 % (0-5); Neutrophil # 3.27 X10^3/uL (2.7-7.7); Neutrophil % 65.1 % (47-70); Platelet Count 301 K/mm3 (150-450); RBC Distribution Width CV 13.7 % (11.6-14.6); RBC Distribution Width SD 49.8 fl (35.1-43.9); Red Blood Count 2.47 M/mm3 (4.2-5.4)
[2021-09-08] MEDS: Calcium Carb/Vitamin D 1 TABLET Tablet PO (08:37)
[2021-09-08] MEDS: Multivitamins,Therapeutic Tablet 1 TABLET PO (08:38)
[2021-09-08] MEDS: Potassium Chloride Oral Tablet 10 MEQ PO ×2 (08:38→16:53)
[2021-09-08] MEDS: Ferrous Sulfate 325 MG Tablet PO (08:39)
--- NOTE | 2021-09-08 09:42 | NURSING ---
FERNY FROM OFFICE RETURNED CALL AND STATED THAT SINCE THE PT CAN WALK WITH A WALKER, THE DAUGHTER CAN BRING PT AND THERE IS WHEEL CHAIRS SHE CAN USE THERE AND THAT THE TABLE SHE NEEDS TO GET ON DOES GO UP AND DOWN. RN AWARE. WILL UPDATE FAMILY.
[2021-09-08] MEDS: oxyCODONE 5 MG Tablet PO ×3 (09:53→22:43)
[2021-09-08] MEDS: Menthol/Lanolin/Calamine/Znox 113 GM Tube 1 APPLIC TOPICAL ×2 (10:06→22:45)
[2021-09-08] MEDS: Tuberculin,Purif.prot.deriv. 50 TU/ML Vial 0.1 ML ID (10:07)
[2021-09-08 11:25] VITALS: PULSE 74; RESP 18; O2SAT 98
[2021-09-08 15:30] VITALS: BP 102/53; PULSE 78; RESP 15; TEMP 37; O2SAT 95
[2021-09-08] MEDS: Furosemide 40 MG Tablet PO (16:53)
[2021-09-09] MEDS: Pantoprazole Sodium 40 MG Tablet PO (06:01)
[2021-09-09] MEDS: Furosemide 80 MG Tablet PO (06:01)
[2021-09-09] MEDS: Sucralfate 1 GM Tablet PO ×4 (06:01→21:48)
[2021-09-09] MEDS: Loratadine 10 MG Tablet PO (06:01)
[2021-09-09] MEDS: Citalopram 20 MG Tablet PO (06:01)
[2021-09-09] MEDS: Vitamin B Comp W-C Capsule 1 CAP PO (06:01)
[2021-09-09] MEDS: Fluticasone/Salmeterol 232-14 Inhaler 1 PUFF INHALATION ×2 (06:01→16:57)
[2021-09-09 06:02] VITALS: PULSE 80
[2021-09-09] MEDS: Metoprolol(XL)Succ 25 MG Tablet PO (06:02)
[2021-09-09] MEDS: Potassium Chloride Oral Tablet 10 MEQ PO ×2 (07:51→16:57)
[2021-09-09] MEDS: Calcium Carb/Vitamin D 1 TABLET Tablet PO (07:51)
[2021-09-09] MEDS: Ferrous Sulfate 325 MG Tablet PO (07:51)
[2021-09-09] MEDS: Multivitamins,Therapeutic Tablet 1 TABLET PO (07:51)
[2021-09-09] MEDS: Menthol/Lanolin/Calamine/Znox 113 GM Tube 1 APPLIC TOPICAL ×2 (07:55→21:54)
[2021-09-09 14:47] VITALS: BP 91/47; PULSE 88; RESP 14; TEMP 36.8; O2SAT 95
[2021-09-09] MEDS: Furosemide 40 MG Tablet PO (16:57)
[2021-09-09] MEDS: traMADol 50 MG Tablet PO (21:46)
[2021-09-09 22:40] VITALS: RESP 18; O2SAT 98
[2021-09-09] MEDS: oxyCODONE 5 MG Tablet PO (23:18)
--- NOTE | 2021-09-10 04:26 | NURSING ---
Pt requested dressing on R hip be taken off d/t irritation; no drainage noted at this time. Area is reddened and slightly warm, note left for Dr. Caraballo.
[2021-09-10] MEDS: Loratadine 10 MG Tablet PO (05:00)
[2021-09-10] MEDS: Vitamin B Comp W-C Capsule 1 CAP PO (05:00)
[2021-09-10] MEDS: Citalopram 20 MG Tablet PO (05:00)
[2021-09-10 05:01] VITALS: BP 110/64; PULSE 78
[2021-09-10] MEDS: Furosemide 80 MG Tablet PO (05:01)
[2021-09-10] MEDS: Metoprolol(XL)Succ 25 MG Tablet PO (05:01)
[2021-09-10] MEDS: Pantoprazole Sodium 40 MG Tablet PO (05:01)
[2021-09-10] MEDS: Fluticasone/Salmeterol 232-14 Inhaler 1 PUFF INHALATION ×2 (05:02→17:03)
[2021-09-10] MEDS: Sucralfate 1 GM Tablet PO ×4 (07:08→20:01)
[2021-09-10] MEDS: Potassium Chloride Oral Tablet 10 MEQ PO ×2 (08:00→17:02)
[2021-09-10] MEDS: Calcium Carb/Vitamin D 1 TABLET Tablet PO (08:00)
[2021-09-10] MEDS: Ferrous Sulfate 325 MG Tablet PO (08:00)
[2021-09-10] MEDS: Multivitamins,Therapeutic Tablet 1 TABLET PO (08:00)
[2021-09-10] MEDS: Menthol/Lanolin/Calamine/Znox 113 GM Tube 1 APPLIC TOPICAL ×2 (08:01→20:03)
[2021-09-10] MEDS: oxyCODONE 5 MG Tablet PO ×2 (12:08→20:00)
[2021-09-10 13:55] VITALS: BP 106/69; PULSE 85; RESP 16; TEMP 36.2; O2SAT 98
[2021-09-10] MEDS: Furosemide 40 MG Tablet PO (17:02)
[2021-09-10] MEDS: traMADol 50 MG Tablet PO (22:44)
[2021-09-11] MEDS: Vitamin B Comp W-C Capsule 1 CAP PO (05:08)
[2021-09-11] MEDS: Pantoprazole Sodium 40 MG Tablet PO (05:08)
[2021-09-11 05:09] VITALS: BP 107/56; PULSE 78
[2021-09-11] MEDS: Fluticasone/Salmeterol 232-14 Inhaler 1 PUFF INHALATION (05:09)
[2021-09-11] MEDS: Citalopram 20 MG Tablet PO (05:09)
[2021-09-11] MEDS: Loratadine 10 MG Tablet PO (05:09)
[2021-09-11] MEDS: Furosemide 80 MG Tablet PO (05:09)
[2021-09-11] MEDS: Metoprolol(XL)Succ 25 MG Tablet PO (05:09)
[2021-09-11] MEDS: Sucralfate 1 GM Tablet PO ×2 (05:10→11:03)
[2021-09-11] MEDS: Ferrous Sulfate 325 MG Tablet PO (07:43)
[2021-09-11] MEDS: Calcium Carb/Vitamin D 1 TABLET Tablet PO (07:43)
[2021-09-11] MEDS: Potassium Chloride Oral Tablet 10 MEQ PO (07:44)
[2021-09-11] MEDS: Multivitamins,Therapeutic Tablet 1 TABLET PO (07:44)
[2021-09-11] MEDS: Menthol/Lanolin/Calamine/Znox 113 GM Tube 1 APPLIC TOPICAL (07:45)
--- NOTE | 2021-09-11 13:14 | DCINST_ITS ---
Discharge Instructions Diet Discharge Diet: No restrictions Activity Discharge Activity: May Not Drive and May Shower Weight Bearing Status: Weight bearing as tolerated Lifting Restrictions: no lifting Keep extremity elevated above heart level: Right Leg Dressing / Incision Call your doctor if your incision/area has: Continuous Slow Oozing, Increased Pain/ Swelling, Increased Redness and Foul Smelling Discharge Call your doctor if you observe: Fever of 101 or Higher, Inability to urinate, Inability to have a bowel movement, Shortness of breath, Dizziness, Fainting spells, Chest pain, Increased palpitations (irregular heartbeat), Calf discomfort and Uncontrolled pain Suture Line Care: Avoid Pulling/Pushing Cleanse incision/area with: Soap & Water Follow Up Care Please Follow Up With: Test Results: Test results from this visit will be discussed in further detail at your follow- up appointment, if applicable. Pending Tests Upon Discharge: none Discharge Plan Admission Admit Date/Time: 08/31/21 17:55 Primary Reason for Your Visit: Debility second [place]ou[place] to right hip fracture/ORIF. Attending Provider: Solitario Light Chi Primary Care Provider: John Vora Instructions Patient Instructions: Fx Hip Surg Dc Additional Instructions / Restrictions: 1. Get up and talk a walk in the house at least once an hour to prevent getting stiff and making it hard to move. Exercise is very important for healing of the bone. Walking also helps to mobilize the fluid in the legs. 2. Take pain medications if the pain is > 3/10. If you wait until the pain gets horrible it will take more medication to control it. Pain medication and immobility make you constipated. You are also on a few medications known to cause constipation. If you have constipation increase the fiber in your diet and start a stool softener such as Metamucil or Citrucel or MiraLAX. 3. You lost blood with the surgery and you are anemic (that means your red blood cell count is low). You have been started on an iron supplement to help build your blood count back up. You will take the iron with a meal and with Vitamin C since this increases the absorption from your GI system. 4. Your INR is 2.9 and the blood count is stable. 5. Always use the walker until the physical therapist or your surgeon tells you it is OK to graduate to a cane. 6. Follow up with Dr.. Vora within the next 7-10 days. 7. You should continue to wear the compression stockings after you get home to help control the swelling. Put them on as soon as you get up in the morning and do not take them off until you go to bed at night. Elevate your legs when you are sitting in a chair. Sitting with your legs down on the floor takes the fluid into the ankles and then it causes swelling. 8. If you have any questions after you leave rehab please don't hesitate to call me OFFICE: [phone] CELL: [phone] Discharge Orders/Prescriptions Prescriptions: New acetaminophen 500 mg Tablet 1,000 mg PO Q8H PRN PRN (Reason: Pain Score 1-3) Qty: 0 0RF oxycodone 5 mg Tablet 5 mg PO Q4H PRN PRN (Reason: Pain Score 6-10) 7 Days Qty: 21 0RF Continued calcium carbonate-vitamin D3 600-125 mg-unit Tablet 600 tab PO DAILY Advair HFA 45-21 mcg/actuation Hfa Aerosol Inhaler 2 puff INHALATION BID furosemide 40 mg Tablet 40 mg PO DINNER cetirizine 10 mg Tablet 10 mg PO DAILY loperamide 2 mg Tablet 2 - 4 mg PO Q8H PRN (Reason: Loose Stool) potassium chloride 10 mEq Tablet Extended Release 10 meq PO BID omeprazole 40 mg Capsule,Delayed Release(Dr/Ec) 40 mg PO DAILY spironolactone 25 mg Tablet 12.5 mg PO DAILY Rx Instructions: HOLD if SBP <100 citalopram 20 mg Tablet 20 mg PO DAILY furosemide [Lasix] 80 mg Tablet 80 mg PO DAILY Rx Instructions: Hold if SBP <100 warfarin 5 mg Tablet 5 mg PO DAILY nitroglycerin 0.4 mg Tablet, Sublingual 0.4 mg SUBLINGUAL Q5M PRN (Reason: Chest Pain) Rx Instructions: do not exceed 3 doses per episode albuterol sulfate [ProAir HFA] 90 mcg/actuation Hfa Aerosol Inhaler 2 puff INHALATION Q6H PRN PRN (Reason: sob) Rx Instructions: inhale 2 puffs every 4-6 hours as needed alosetron [Lotronex] 0.5 mg Tablet 0.5 mg PO DAILY Rx Instructions: give daily after breakfast iron tish,ps-FA-B-C#12-succ 1 tab PO/SL DAILY vitamin B comp with vit C no.6 1 tab PO/SL DAILY ascorbic acid (vitamin C) 500 mg Tablet 500 mg PO DAILY Qty: 90 0RF Rx Instructions: Take this with a meal and with the iron supplement to increase absorption metoprolol succinate 25 mg Tablet Extended Release 24 Hr 25 mg PO DAILY Qty: 30 0RF Rx Instructions: hold if SBP <100 Discontinued hydrocodone-acetaminophen [[place]] 5-325 mg Tablet 1 tab PO Q6H PRN (Reason: Severe Pain (Scale Score 6-10)) losartan [Cozaar] 50 mg Tablet 50 mg PO DAILY metolazone 2.5 mg Tablet 2.5 mg PO DAILY sucralfate 1 gram Tablet 1 g PO 4X/DAY ferrous sulfate 325 mg (65 mg iron) Tablet 325 mg PO DAILY hydroxychloroquine 200 mg Tablet 200 mg PO BID colestipol 1 gram Tablet 2 g PO DAILY Entresto 24-26 mg Tablet 1 tab PO BID Referrals / Follow Up: John Vora MD [Primary Care Provider] - Disposition Disposition (needs filled in before D/C Order can be placed): Home, Self Care
[2021-09-11 14:09] VITALS: BP 101/54; PULSE 61; RESP 16; TEMP 37; O2SAT 100
--- NOTE | 2021-09-11 14:09 | DS.PCM_ITS ---
Providers Date of Admission: 08/31/21 Date of Discharge: 09/11/21 Primary Care Physician: Dr. Jeff Jordan Reason For Visit: HIP FRACTURE Diagnosis Discharge Diagnosis (1) Debility: Status: Acute Code(s): R53.81 - Other malaise (2) History of open reduction and internal fixation (ORIF) procedure: Status: Acute Code(s): Z98.890 - Other specified postprocedural states (3) Closed right hip fracture: Status: Acute Code(s): S72.001A - Fracture of unspecified part of neck of right femur, initial encounter for closed fracture (4) Anemia: Status: Acute Code(s): D64.9 - Anemia, unspecified Plan: Due to acute blood loss from ORIF of right hip fracture. Hemoglobin is 8 at the time of discharge. 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 (7) Chronic systolic congestive heart failure: Status: Chronic Code(s): I50.22 - Chronic systolic (congestive) heart failure (8) Hypokalemia: Status: Acute Code(s): E87.6 - Hypokalemia (9) Gastroesophageal reflux disease: Status: Acute Code(s): K21.9 - Gastro-esophageal reflux disease without esophagitis (10) Hypertension: Status: Chronic Code(s): I10 - Essential (primary) hypertension (11) Coronary artery disease: Status: Acute Code(s): I25.10 - Atherosclerotic heart disease of cheesh-na coronary artery without angina pectoris Plan 1. DC home with family 2. Follow up with Dr. Jordan in the next 7-10 days. 3. Follow up with [facility] Medications at Discharge Home Medications albuterol sulfate 90 mcg/actuation aerosol inhaler (ProAir HFA) 2 puff inhalation Q6H PRN PRN sob 08/31/21 alosetron 0.5 mg tablet (Lotronex) 0.5 mg PO DAILY Check with primary doctor 08/31/21 calcium carbonate-vitamin D3 600 mg-125 unit tablet 600 tab PO DAILY vitamin 08/31/21 cetirizine 10 mg tablet 10 mg PO DAILY allergies 08/31/21 citalopram 20 mg tablet 20 mg PO DAILY mood 08/31/21 fluticasone propionate 45 mcg-salmeterol 21 mcg/actuation HFA inhaler (Advair HFA) 2 puff inhalation BID sob/wheezing 08/31/21 furosemide 40 mg tablet 40 mg PO DINNER water pill 08/31/21 furosemide 80 mg tablet (Lasix) 80 mg PO DAILY water pill 08/31/21 iron bisgly,ps-FA-B-C#12-succ 1 tab PO/SL DAILY Check with primary doctor 08/31/21 loperamide 2 mg tablet 2 - 4 mg PO Q8H PRN Loose Stool 08/31/21 nitroglycerin 0.4 mg sublingual tablet 0.4 mg sublingual Q5M PRN Chest Pain 08/31/21 omeprazole 40 mg capsule,delayed release 40 mg PO DAILY acid reflux 08/31/21 potassium chloride 10 mEq tablet,extended release 10 meq PO BID supplement 08/31/21 spironolactone 25 mg tablet 12.5 mg PO DAILY BP 08/31/21 vitamin B comp with vit C no.6 1 tab PO/SL DAILY supplement 08/31/21 warfarin 5 mg tablet 5 mg PO DAILY blood thinner 08/31/21 acetaminophen 500 mg tablet 1,000 mg PO Q8H PRN PRN Pain Score 1-3 #0 tabs 09/11/21 ascorbic acid (vitamin C) 500 mg tablet 500 mg PO DAILY supplement #90 tabs 09/11/21 metoprolol succinate 25 mg tablet,extended release 24 hr 25 mg PO DAILY water pill #30 tabs 09/11/21 oxycodone 5 mg tablet 5 mg PO Q4H PRN PRN Pain Score 6-10 7 days #21 tabs 09/11/21 Hospital Course Operations - (Right hip hemiarthroplasty on 08/29/2021 at [facility]) Procedures None Summary of Care Provided Minutes Spent on Discharge: 35 Hospital Course: Aliza Brandon is and 85-year-old female who presented to an emergency department on 08/04/2021 complaining of right hip pain after a fall. X-rays in the emergency room were negative and she was sent home. The R hip pain persisted and she followed up with [facility] for additional imaging and she was found to have a R femoral neck fracture. She was admitted to [facility] on 08/29/2021 for a right hip hemiarthroplasty. On 08/31/2021 she was transferred to the transitional care unit at [facility] with a diagnosis of debility secondary to hip fracture. Lab at the time of admission to TCU showed a hemoglobin of 8.3, low pl atelets at 130,000 and a normal white blood cell count. INR was mildly subtherapeutic at 1.9. Potassium was low at 3.4 and supplementation was ordered. during her stay in TCU she was noted to have pitting edema of both LE's and she and her family related that she had been off her Lasix for several days. Lasix was restarted and GISELLA wraps were applied to the distal LE's to provide compression. She was instructed to keep her legs elevated any time she was sitting in a chair. On the date of discharge her hemoglobin was 8.0. Platelets were within normal limits and the white blood cell count was normal. Potassium came up to 3.7 with supplementation however it was down again on the date of d ischarge to 3.4, more likely than not secondary to restarting diuretics. The BUN was 20 and the creatinine was 0.68 which is within her baseline. The potassium supplement was increased at discharge. INR was stable at 2.9 at the time of discharge. At the time of discharge she was ambulating 43 feet with a wheeled walker at contact-guard assist. She was able to do 6 sit to stands in 30 seconds. She was able to ascend one 2 inch steps with a wheeled walker at contact-guard assist. Her family felt that she was ready for discharge and asked me to discharge her on 09/08/21. She will need to continue therapy after [facility]. she has a lot of support at home to assist with whatever she needs. I went over the list of her home medications with her and her dtr at [facility]. She was on 2 medications while in [facility] and [facility] that she had not taken for a long time and these were discontinued at [facility]. The list was updated for them to take home and the pt was instructed to always keep a list of her medications in her purse so that if she goes to an ED they will be able to review the list. She will follow up with Dr. Jordan post DC and should have a PT/INR, HH and BMP at some point within the next 2 weeks. Physical Exam Const alert, oriented x3 and no apparent distress General Appearance: cooperative HEENT normocephalic and head/scalp atraumatic Mouth: dry mucous membranes Eyes PERRL and EOMs intact bilaterally Neck supple General: trachea midline Resp normal respiratory effort and clear to auscultation bilaterally Resp Narrative: Able to speak in complete sentences. Cardio regular rate, regular rhythm, no rub and no gallops GI normal to inspection, nondistended, normoactive bowel sounds, soft to palpation and non-tender GI Narrative: No guarding with patient Extremity no calf tenderness Extremity Narrative: The edema in the legs is much better. There is no posterior thigh edema any longer and she has minimal pitting edema of the ankles. the skin of the distal LE's is softer and less brawny. Skin Skin Narrative: The wound is intact with no dehiscence. There is no erythema, no purulent DC and the swelling/bruising are resolving. General Skin Exam: no breakdown Rashes: no rashes Neuro CN's II-XII intact bilaterally and no focal motor deficits Psych affect normal Medical Records Data Medical Nutrition Assessment Dietitian: Malnutrition Criteria Met Start: 09/02/21 14:52 Freq: Status: Active Protocol: Document 09/07/21 12:46 SVEN (Rec: 09/07/21 12:46 [facility] [id number]) Nutrition Malnutrition Evidence of Malnutrition Exists Yes Malnutrition (moderate): Acute Illness/Injury Evidenced By Suboptimal Energy Intake ( Moderate),Weight Loss (Severe) Clinical Problem Acute Disease or Injury Related Malnutrition Etiology related to inadequate oral intake to meet est nutritional needs Signs/Symptoms as evidenced by 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 Res has fat/muscle loss in temporal/orbital areas, clavicle, tricep, upper/lower body. (PO intake improving, but unsure if masked wt loss d /t increased edema since adm.) Status Active Problem Recommendation Dietitian Recommendations/Changes Will change to regular No Added Salt diet d/t issues w/ edema and d/c ensure pudding at lunch and dinner per res preference. Will continue ensure enlive 120 ml 4x/day w/ medpass Rec consider appetite stimulant to help encourage increased po intake prn. Weight / BMI Weight Weight: 152 lb Body Mass Index (BMI) 21.4 ABG / Lab / Microbiology Data Result Diagrams: 09/08/21 05:09 09/08/21 05:09 Microbiology: Microbiology 09/07/21 13:50 Nasal Secretion SARS-CoV-2 Antigen (Rapid) - Final 09/03/21 12:37 Nasal Secretion SARS-CoV-2 Antigen (Rapid) - Final D/C Instructions Discharge Diet: No restrictions Weight Bearing Status: Weight bearing as tolerated Keep extremity elevated above heart level: Right Leg Call your doctor if your incision/area has: Continuous Slow Oozing, Increased Pain/ Swelling, Increased Redness and Foul Smelling Discharge Call your doctor if you observe: Fever of 101 or Higher, Inability to urinate, Inability to have a bowel movement, Shortness of breath, Dizziness, Fainting spells, Chest pain, Increased palpitations (irregular heartbeat), Calf discomfort and Uncontrolled pain Suture Line Care: Avoid Pulling/Pushing Cleanse incision/area with: Soap & Water Pending Tests Upon Discharge: none Please Follow Up With: Meaningful Use Info Meaningful Use Diagnoses (Choose all that apply): None applicable Discharge Plan Admission Admit Date/Time: 08/31/21 17:55 Primary Reason for Your Visit: Debility second Tito to right hip fracture/ORIF. Attending Provider: Solitario Light Chi Primary Care Provider: John Vora Instructions Patient Instructions: Fx Hip Surg Dc Additional Instructions / Restrictions: 1. Get up and talk a walk in the house at least once an hour to prevent getting stiff and making it hard to move. Exercise is very important for healing of the bone. Walking also helps to mobilize the fluid in the legs. 2. Take pain medications if the pain is > 3/10. If you wait until the pain gets horrible it will take more medication to control it. Pain medication and immobility make you constipated. You are also on a few medications known to cause constipation. If you have constipation increase the fiber in your diet and start a stool softener such as Metamucil or Citrucel or MiraLAX. 3. You lost blood with the surgery and you are anemic (that means your red blood cell count is low). You have been started on an iron supplement to help build your blood count back up. You will take the iron with a meal and with Vitamin C since this increases the absorption from your GI system. 4. Your INR is 2.9 and the blood count is stable. 5. Always use the walker until the physical therapist or your surgeon tells you it is OK to graduate to a cane. 6. Follow up with Dr.. Vora within the next 7-10 days. 7. You should continue to wear the compression stockings after you get home to help control the swelling. Put them on as soon as you get up in the morning and do not take them off until you go to bed at night. Elevate your legs when you are sitting in a chair. Sitting with your legs down on the floor takes the fluid into the ankles and then it causes swelling. 8. If you have any questions after you leave rehab please don't hesitate to call me OFFICE: [phone] CELL: [phone] Discharge Orders/Prescriptions Prescriptions: New acetaminophen 500 mg Tablet 1,000 mg PO Q8H PRN PRN (Reason: Pain Score 1-3) Qty: 0 0RF oxycodone 5 mg Tablet 5 mg PO Q4H PRN PRN (Reason: Pain Score 6-10) 7 Days Qty: 21 0RF Continued calcium carbonate-vitamin D3 600-125 mg-unit Tablet 600 tab PO DAILY Advair HFA 45-21 mcg/actuation Hfa Aerosol Inhaler 2 puff INHALATION BID furosemide 40 mg Tablet 40 mg PO DINNER cetirizine 10 mg Tablet 10 mg PO DAILY loperamide 2 mg Tablet 2 - 4 mg PO Q8H PRN (Reason: Loose Stool) potassium chloride 10 mEq Tablet Extended Release 10 meq PO BID omeprazole 40 mg Capsule,Delayed Release(Dr/Ec) 40 mg PO DAILY spironolactone 25 mg Tablet 12.5 mg PO DAILY Rx Instructions: HOLD if SBP <100 citalopram 20 mg Tablet 20 mg PO DAILY furosemide [Lasix] 80 mg Tablet 80 mg PO DAILY Rx Instructions: Hold if SBP <100 warfarin 5 mg Tablet 5 mg PO DAILY nitroglycerin 0.4 mg Tablet, Sublingual 0.4 mg SUBLINGUAL Q5M PRN (Reason: Chest Pain) Rx Instructions: do not exceed 3 doses per episode albuterol sulfate [ProAir HFA] 90 mcg/actuation Hfa Aerosol Inhaler 2 puff INHALATION Q6H PRN PRN (Reason: sob) Rx Instructions: inhale 2 puffs every 4-6 hours as needed alosetron [Lotronex] 0.5 mg Tablet 0.5 mg PO DAILY Rx Instructions: give daily after breakfast iron francesmarina emmanuel-FA-B-C#12-succ 1 tab PO/SL DAILY vitamin B comp with vit C no.6 1 tab PO/SL DAILY ascorbic acid (vitamin C) 500 mg Tablet 500 mg PO DAILY Qty: 90 0RF Rx Instructions: Take this with a meal and with the iron supplement to increase absorption metoprolol succinate 25 mg Tablet Extended Release 24 Hr 25 mg PO DAILY Qty: 30 0RF Rx Instructions: hold if SBP <100 Discontinued hydrocodone-acetaminophen [[place]] 5-325 mg Tablet 1 tab PO Q6H PRN (Reason: Severe Pain (Scale Score 6-10)) losartan [Cozaar] 50 mg Tablet 50 mg PO DAILY metolazone 2.5 mg Tablet 2.5 mg PO DAILY sucralfate 1 gram Tablet 1 g PO 4X/DAY ferrous sulfate 325 mg (65 mg iron) Tablet 325 mg PO DAILY hydroxychloroquine 200 mg Tablet 200 mg PO BID colestipol 1 gram Tablet 2 g PO DAILY Entresto 24-26 mg Tablet 1 tab PO BID Referrals / Follow Up: John Vora MD [Primary Care Provider] - Disposition Disposition (needs filled in before D/C Order can be placed): Home, Self Care Charges/Coding Visit Charges Inpatient E&M: 38437 SNF Disch >30 Min
--- NOTE | 2021-09-12 10:50 | CASEMGMT ---
Social Work Notified by nursing staff that patient choose to discharge to home on 09/11/2021. Physical and occupational therapy along with alf are recommending home health care. Telephone call to patient daughterStephenie. No answer. Voicemail left inquiring about setting up home health care. Will continue to follow as needed. Soumya Mckeon MSW, ANGIES
--- NOTE | 2021-09-13 12:14 | CASEMGMT ---
Social Work Received call from dtr, Trang, on setting up HHC. Informed dtr that HHC is set up prior to DC, but since pt is now DC'd, Informed dtr to contact PCP to get orders. Dtr stated pt has an appt with the surgeon today and inquired if the surgeon can order HHC. SW confirmed the surgeon can order PT/OT but not SN. Dtr stated pt only needs PT/OT. SW offered to contact this worker if surgeon cannot place order for further assistance. Dtr appreciative. Xiomy Osullivan, STUDY LEAD RESPITE CARE PROVIDER
--- NOTE | 2021-09-22 11:17 | NURSING ---
Home Companion Note: Initial activity assessment completed on paper by interim patient experience coordinator.
== END 2021-09-11 14:15 | disposition home or self-care (01) | DRG 560 ==
PROVIDERS: Internal Medicine; Admitting Provider Family Medicine Geriatric Medicine; PCP Family Medicine; Visit Provider Family Medicine Geriatric Medicine
DX: S72.001D Fracture of unspecified part of neck of right femur, subsequent encounter for closed fracture with routine healing (principal); I50.22 Chronic systolic (congestive) heart failure; D62 Acute posthemorrhagic anemia; I11.0 Hypertensive heart disease with heart failure; I48.91 Unspecified atrial fibrillation; D50.9 Iron deficiency anemia, unspecified; K58.9 Irritable bowel syndrome, unspecified; M19.90 Unspecified osteoarthritis, unspecified site; K21.9 Gastro-esophageal reflux disease without esophagitis; E87.6 Hypokalemia; J45.909 Unspecified asthma, uncomplicated; I25.10 Atherosclerotic heart disease of native coronary artery without angina pectoris; F41.9 Anxiety disorder, unspecified; F32.A Depression, unspecified; Z79.51 Long term (current) use of inhaled steroids; X58.XXXD Exposure to other specified factors, subsequent encounter; Z79.899 Other long term (current) drug therapy; Z96.641 Presence of right artificial hip joint; Z79.01 Long term (current) use of anticoagulants
CPT/HCPCS: 36415; 80048; 85014; 85018; 85025; 85610; 87811; 94640; 97110; 97116; 97162; 97166; 97530; 97535; 97802

== ENCOUNTER → 2023-11-14 | Outpatient (CLI) | payer MEDICARE, SELFPAY ==
--- NOTE | 2023-11-14 15:41 | MRI_ITS ---
STUDY: MRI BRAIN WITH AND WITHOUT CONTRAST (ATTENTION INTERNAL AUDITORY CANALS - I.A.C.''s) REASON FOR EXAM: Female, 87 years old. ASYMETRICA HEARING LOSS, ATTN IAC''S TECHNIQUE: Standardized multiplanar fat and water weighted pulse sequences were obtained. 12ML IV CLARISCAN was administered for the contrast portion of the examination. COMPARISON: May 27, 2016 FINDINGS: Normal bilateral temporal bones. Normal bilateral internal auditory canals. There is no demonstrated intracanalicular or cisternal vestibular schwannoma (acoustic neuroma). There is no enhancement of the bilateral VIIth or VIIIth cranial nerves. Normal bilateral cochlea, vestibules and semicircular canals. Moderate atrophy and advanced periventricular white matter ischemic changes without mass effect or restricted diffusion. Normal bilateral basal ganglia. Normal thalami. Normal flow voids within the major intracranial circulation suggesting patency by spin echo criteria. Normal venous enhancement. There is no enhancing intra-axial or extra-axial abnormality. There is no extra-axial fluid accumulation. Normal sella turcica, pituitary gland, infundibular stalk, optic chiasm and hypothalamus. Normal tectal plate and pineal gland. Normal midbrain, and medulla. 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 Normal cerebellum. Normal basal cisterns. No demonstrated orbital abnormality, within the constraints of a routine brain study. Normal visualized paranasal sinuses. Normal calvarium and skull base. Normal visualized soft tissue structures. Normal visualized upper cervical spine. Postsurgical changes of the orbits MRI/Brain W/WO Contrast IMPRESSION: Moderate atrophy and advanced periventricular white matter ischemic changes without evidence for acute infarct. 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 No evidence for acoustic or vestibular schwannoma. Electronically Signed: Crow Ribeiro MD at 17:13 EDT Reading Location ID and State: [facility] / [place] Tel , Service support ,
[2023-11-14 16:19] LABS: CREATININE FINGERSTICK < 1.0 mg/dL (0.55-1.02)
== END | disposition home or self-care (01) ==
PROVIDERS: PCP Family Medicine; Referring Provider Otolaryngology; Visit Provider Otolaryngology
DX: Z01.812 Encounter for preprocedural laboratory examination (principal); H90.3 Sensorineural hearing loss, bilateral
CPT/HCPCS: 70553; A9575